=== PATIENT | male | born 1975 | race Caucasian/White ===

== ENCOUNTER 2020-05-09 00:43 | Emergency (ER) | payer BC ==
[2020-05-09 01:08] LABS: HEMOGLOBIN 16.3 gm/dl (14.0-17.5); RED BLOOD COUNT 5.26 M/UL (4.20-5.50); WHITE BLOOD COUNT 8.9 K/UL (4.5-11.0)
[2020-05-09 02:31] LABS: BUN/CREATININE RATIO 20 (0-10)
== END 2020-05-09 03:07 | disposition home or self-care (01) ==
LOC: ER1 00:43
PROVIDERS: Emergency Medicine
DX: R79.89 Other specified abnormal findings of blood chemistry (principal)
CPT/HCPCS: 36415; 80053; 85025; 99283

== ENCOUNTER → 2021-04-30 | Outpatient (CLI) | payer BC | LOC: ECHO 11:45 → HEART 5 15:00 | DX: R94.31 Abnormal electrocardiogram [ECG] [EKG] (principal); I49.3 Ventricular premature depolarization | CPT/HCPCS: ECHO; 93306 ==

== ENCOUNTER → 2021-07-16 | Outpatient (CLI) | payer BC | LOC: HEART 5 14:45 | DX: M79.604 Pain in right leg (principal); M79.605 Pain in left leg ==